=== PATIENT | male | born 1950 | race Native Hawaiian/Other Pacific Islander ===

== ENCOUNTER 2017-11-05 09:20 | Outpatient (CLI) | payer OTHER ==
[2017-11-05 11:23] LABS: PLATELET COUNT 174 K/uL (142-355)
[2017-11-05 11:28] LABS: POTASSIUM 3.8 mmol/L (3.6-5.2)
== END 2017-11-05 19:21 | disposition home or self-care (01) ==
LOC: CT 09:20
PROVIDERS: Internal Medicine
DX: E78.4 Other hyperlipidemia (principal); N20.0 Calculus of kidney
CPT/HCPCS: 36415; 80053; 81000; 82043; 82570; 83735; 83970; 84100; 84155; 84550; 85027

== ENCOUNTER 2020-11-25 10:16 | Outpatient (CLI) | payer OTHER | END 2020-11-25 19:30 | disposition home or self-care (01) | LOC: RAD 10:16 | PROVIDERS: ATTEND Nurse Practitioner Family | DX: M79.672 Pain in left foot (principal) ==

== ENCOUNTER 2021-11-21 08:23 | Outpatient (CLI) | payer OTHER | END 2021-11-21 18:52 | disposition home or self-care (01) | LOC: CT 08:23 | PROVIDERS: ATTEND Specialist | DX: R31.9 Hematuria, unspecified (principal); R10.84 Generalized abdominal pain ==

== ENCOUNTER 2022-02-23 11:50 | Outpatient (CLI) | payer OTHER | END 2022-02-23 19:00 | disposition home or self-care (01) | LOC: RAD 11:50 | PROVIDERS: ATTEND Nurse Practitioner Family | DX: R06.2 Wheezing (principal) ==

== ENCOUNTER 2022-03-12 08:48 | Outpatient (CLI) | payer OTHER | END 2022-03-12 21:19 | disposition home or self-care (01) | LOC: MRI 08:48 | PROVIDERS: ATTEND Nurse Practitioner Family | DX: R42 Dizziness and giddiness (principal) | CPT/HCPCS: A9576 ==

== ENCOUNTER 2022-03-26 09:47 | Outpatient (CLI) | payer OTHER | END 2022-03-26 19:32 | disposition home or self-care (01) | LOC: RESP 09:47 | PROVIDERS: ATTEND Physician Assistant | DX: R06.09 Other forms of dyspnea (principal); R09.89 Other specified symptoms and signs involving the circulatory and respiratory systems ==

== ENCOUNTER 2022-03-26 09:51 | Outpatient (CLI) | payer OTHER | END 2022-03-26 19:32 | disposition home or self-care (01) | LOC: CT 09:51 | PROVIDERS: ATTEND Physician Assistant | DX: R06.09 Other forms of dyspnea (principal); R09.89 Other specified symptoms and signs involving the circulatory and respiratory systems ==

== ENCOUNTER 2023-01-05 14:19 | Outpatient (CLI) | payer OTHER | END 2023-01-05 19:22 | disposition home or self-care (01) | LOC: RAD 14:19 | PROVIDERS: ATTEND Nurse Practitioner Family | DX: M79.642 Pain in left hand (principal) ==